=== PATIENT | male | born 1955 | race Hispanic/Latino ===

== ENCOUNTER 2024-10-24 12:38 | Emergency (ER) | payer OTHER, SELFPAY ==
[2024-10-24] VITALS (26 sets, daily range): BP systolic 154–218; BP diastolic 92–131; BMI 29.2
[2024-10-24] MEDS: DILAUDID 0.5 MG IV (13:07)
--- NOTE | 2024-10-24 13:09 | ED.GENMED ---
History of Present Illness
General
Chief Complaint: Musculo-Skeletal Complaint
Source: patient and ambulance crew
Exam Limitations: none
Time Seen by Provider: 10/24/24 12:58
Nursing documentation reviewed up to this point in time: agreed with
History of Present Illness
History of Present Illness:
68-year-old male with a history of hypertension presents to the ER for evaluation of a right ankle injury. Patient says that he went to step up a short step and unfortunately slipped and injured his right ankle. Has an obvious deformity. He says
he did not hit his head or sustain any other injuries. Aside from ankle pain he denies any knee pain or hip pain on the right. He denies any other complaints. He is not on any blood thinners. He did receive fentanyl x 200 mcg from EMS without
improvement in his symptoms.
Review of Systems
Review of Systems
All Other Systems: ROS reviewed and negative except as documented in HPI and ROS
Musculoskeletal: Reports joint pain (Right ankle pain); Denies neck pain or back pain
Neurological: Denies headache
Phy Exam
Physical Exam
Physical Exam:
General: Awake, alert, oriented x3; appears uncomfortable
Head: Normocephalic, atraumatic
Eyes: Conjunctiva normal, pupils equal round and reactive to light bilaterally
Throat: Airway intact, handling secretions
Neck: Trachea midline, no cervical spine tenderness
Back: No signs of trauma the back or flank and no tenderness in the thoracic or lumbar spine
Lungs: Breathing comfortably with no distress
Heart: Regular rate; no chest wall tenderness
Abd: Soft, non distended, nontender
Neuro: Cranial nerves grossly intact, speech fluid; distal motor and sensory intact in the toes of the distal right lower extremity
Skin: no rash, no lacerations or abrasions noted in the ankle
Extremities: Patient has deformity the ankle with external rotation of the foot in relation to the lower leg; he has significant swelling around the ankle and tenderness circumferentially; he does have a strong palpable DP pulse as well as a good
popliteal pulse on the right; good sensation in the toes and is able to wiggle his toes; he has no tenderness of the right knee and no pain with gentle internal and external rotation of the right hip; rest of extremities no reproducible tenderness
and they are atraumatic with no deformities
Scores
Heart Failure Risk
Heart Failure Risk Score: Not Applicable
Heart Score for Chest Pain Patients
STEMI patient?: Not applicable
Withdrawal Assessment of Alcohol
Withdrawal Assessment Completed?: Not applicable
Course
Orders/Labs/Results
Orders:
Orders
10/24/24 13:00
CR Ankle - Right Min 3 Views * Urgent
Comment:
Reason For Exam: right ankle fx
10/24/24 13:01
HYDROmorphone [Dilaudid] 0.5 mg IV NOW STA
Ketorolac [Toradol] 15 mg IV NOW STA
10/24/24 13:11
Complete Blood Count/With Diff Urgent
Comprehensive Metabolic Panel Urgent
10/24/24 13:25
CR Leg Tibia/fibula Right 2 Vw Urgent
Comment:
Reason For Exam: ankle fx
10/24/24 14:22
Propofol [Diprivan] 20 ml .ROUTE .STK-MED
10/24/24 14:44
CR Ankle - Right 2 Views Urgent
Comment:
Reason For Exam: post reduction
Tib/Fib, Right 2 View [CR Leg Tibia/fibula Right 2 Vw] Urgent
Comment:
Reason For Exam: fib fx--post reduction
Abnormal Lab Results
10/24/24
13:11
Abs Immat Gran (auto) 0.1 H 10^3/uL
(0-0.05)
Absolute Neuts (auto) 6.8 H 10^3/uL
(1.4-6.5)
Absolute Lymphs (auto) 0.8 L 10^3/uL
(1.2-3.4)
Immature Gran % 1.6 H %
(0-0.5)
Neutrophils % 84.0 H %
(42.2-75.2)
Lymphocytes % 10.0 L %
(20.5-51.1)
BUN 25 H mg/dl
(9-20)
Glucose 138 H mg/dl
(70-99)
10/24/24 13:11
10/24/24 13:11
Vital Signs
Initial and Last Documented VS:
Initial Vital Signs
BP
218/129
10/24/24 12:46
Last Documented Vital Signs
Temp Pulse Resp BP Pulse Ox
36.9 C 89 16 190/104 99
10/24/24 14:48 10/24/24 14:48 10/24/24 14:48 10/24/24 14:48 10/24/24 14:48
Procedures
Moderate Sedation
ASA Risk Score: Class II
Chart and allergies reviewed: Yes
Consent for anesthesia obtained: Yes
Time out completed (validating right patient & procedure): Yes
Moderate Sedation Start Time(when first medication is given): 14:34
History of difficult intubation: No
Airway free of obstruction: Yes
Patient has a gag reflex: Yes
Patient is able to open mouth: Yes
Patient has no dentures: Yes
Patient has no loose teeth: Yes
Medication administered by Provider during Moderate Sedation: IV Propofol (mg)
Total dose administered: 120
Time drug administered: 14:34
Moderate Sedation Procedure End Time: 14:48
Splinting/Sling Placement
Right Ankle:
Procedure completed by: Zackary Gutierrez MD
Pre-splint extermity exam: neurovascular intact
Type of splint: posterior long leg (with stirrup)
Splint material: plaster
Splint checked by provider?: Yes
Normal distal neurovascular exam?: Yes
Joint/Fracture Reduction
Right Leg:
Indication for procedure:: ankle dislocation, tib/fib fracture
Procedure completed by: Zackary Gutierrez MD
Consent form signed: Yes
Anesthesia/sedation: Moderate sedation
Injury was: closed
Further treatement: needs further treatment
Post reduction exam: stable
Capillary Refill: normal
Normal distal neurovascular exam?: Yes
Peripheral Pulses: dorsalis pedis (right): 2+
MDM/Problems Addressed
Differential Diagnosis Includes:
Ankle dislocation, ankle fracture
MDM/Problems Addressed:
68-year-old male presents after slip and fall with right ankle injury and deformity. Hypertensive otherwise normal vitals. Physical exam as above�fortunately neurovascular exam is intact. Suspect fracture/dislocation�will check x-ray of the ankle
and knee on the right. Treat pain. Reassess after the above.
X-ray shows tibial talar dislocation, fracture of the distal tibia, fracture of the midshaft fibula. Discussed with orthopedist who recommended ER reduction and postreduction x-rays�if alignment improved he would likely benefit from delayed repair
to allow swelling to go down. Patient agreeable.
Ankle reduced as documented in procedure note and splinted using posterior long-leg with stirrup. Postreduction x-ray shows appropriate positioning. Postreduction x-ray reviewed with orthopedist they feel with alignment as noted patient can be
discharged for delayed repair as an outpatient. I did speak the patient and family about strict nonweightbearing status and they feel very comfortable with this plan. Will monitor after sedation and if remains stable plan for discharge for
outpatient repair.
Acute Exacerbation and/or Progression of Chronic Illness:
Acutely hypertensive likely pain related�treat pain but no emergent antihypertensives for now
*Radiology
Radiology exam reviewed: preliminary read by ED provider and radiology read reviewed
*Pulse Oximetry
Patient hypoxic: no
*Critical Care Note
Total Time (30-74mins, 75-104mins- exclusive of procedures): Not Applicable
Data Reviewed
Source: patient and ambulance crew
Patient Management
Discussion with other providers: Data Management Manager (Discussed with orthopedist)
ED Attending Note
-
Portions of this chart may have been created with voice recognition software.� Occasional wrong word or��sound alike� substitutions may have occurred due to the inherent limitations of voice recognition software.
Discharge Plan
Departure
Patient with high blood pressure during this ER visit?: Yes
Discharge Problem:
Ankle fracture, Ankle dislocation, Hypertension
Instructions: Ankle Fracture (DC), How to Use Crutches
Referrals:
Janet Hall MD [Family Provider] -
Santy Weiss MD [Active] - Call in 1-3 days for appt (Orthopedist)
Activity Restrictions/Additional Instructions:
Thank you for visiting the Emergency Department at [facility].
1. Please schedule a follow up appointment as directed. Call first thing tomorrow morning to make an appointment.
2. If indicated, please take your medications as instructed and indicated on discharge paperwork.
3. If any of your symptoms do not improve, or persist, or become more severe within 6-12 hours, please return to the emergency department for further care.
4. Please return to the emergency department if you develop a headache, neck pain/stiffness, fever greater than 100.4F, chest pain, shortness of breath, persistent nausea, vomiting, slurred speech, difficulty walking, numbness/tingling, weakness,
signs of infection or any other symptoms that are worrisome to you.
Please call [phone] if you have any questions.
Interventions
Interventions:
*Risk Screen - Suicide Last Done: 10/24/24 12:50
*General Assessment Last Done: 10/24/24 12:50
*Neglect/Abuse Screening Last Done: 10/24/24 12:50
ED- Fall Risk Assessment Last Done: 10/24/24 12:59
*ED COVID-19 Vaccine History Last Done: 10/24/24 12:50
ED-Musculoskeletal Assessment Last Done: 10/24/24 12:51
Discharge Date and Time
Print Language: SETSWANA
[2024-10-24] MEDS: TORADOL 15 MG IV (13:10)
[2024-10-24 13:33] LABS: % Basophils 0.4 % (0-2); % Immature Granulocytes 1.6 % (0-0.5); Absolute Immature Granulocytes 0.1 10^3/uL (0-0.05); Absolute Lymphocytes 0.8 10^3/uL (1.2-3.4); Absolute Monocytes 0.3 10^3/uL (0.1-0.6); Absolute Neutrophils 6.8 10^3/uL (1.4-6.5); Hematocrit 43.7 % (39.0-52.0); Hemoglobin 15.7 g/dL (13.0-18.0); Mean Corp Hgb Conc. 35.9 g/dL (33.0-37.0); Mean Corpuscular Volume 86.4 fL (80.0-94.0); Mean Platelet Volume 9.6 fL (7.4-10.4); Nucleated Red Blood Cells % 0 % (-); Platelet Count 190 10^3/uL (130-400); Red Blood Cell Count 5.06 10^6/uL (4.70-6.10); White Blood Cell Count 8.1 10^3/uL (4.8-10.8)
[2024-10-24 13:41] LABS: ALT (SGPT) 37 U/L (0-50); AST (SGOT) 26 U/L (17-59); Albumin 4.4 g/dl (3.5-5.0); Alkaline Phosphatase 113 U/L (38-126); Blood Urea Nitrogen 25 mg/dl (9-20); Calcium 9.6 mg/dl (8.4-10.2); Carbon Dioxide 26 mmol/L (22-30); Chloride 103 mmol/L (98-107); Estimated Creatinine Clearance 55 ml/min; Glucose 138 mg/dl (70-99); Potassium 4.4 mmol/L (3.5-5.1); Sodium 138 mmol/L (135-145); Total Bilirubin 1.1 mg/dl (0.2-1.3); Total Protein 7.5 g/dl (6.3-8.2); eGFR > 60.00
--- NOTE | 2024-10-24 14:46 | EDRN ---
Patient received total of 120 mg of Diprivan by . Patient's right ankle reduced without difficulty by . Patient placed in posterior splint with sugar tong splint by .
== END 2024-10-24 16:08 | disposition home or self-care (01) ==
LOC: EMR 12:38
PROVIDERS: EMERGENCY PHYSICIAN Emergency Medicine; FAMILY PHYSICIAN Family Medicine
DX: S82.301A Unspecified fracture of lower end of right tibia, initial encounter for closed fracture (principal); S82.491A Other fracture of shaft of right fibula, initial encounter for closed fracture; S93.04XA Dislocation of right ankle joint, initial encounter; X50.1XXA Overexertion from prolonged static or awkward postures, initial encounter; Y92.511 Restaurant or cafe as the place of occurrence of the external cause; I10 Essential (primary) hypertension
CPT/HCPCS: 99285; 27788; 99152; 73590; 73600; 73610; 80053; 85025